=== PATIENT | female | born 1970 | race Caucasian/White ===

== ENCOUNTER 2018-11-15 15:03 | Emergency (ER) | payer OTHER ==
[~2018-11-15] VITALS: Ht 167.6 cm; Wt 108.9 kg
[~2018-11-15 15:03] MED LIST: ALLER-TEC D 5-1 EACH PO; ALYACEN1 EAC1; Bactrim Ds Tab1 EACH PO; Flonase 0.05% N16 GM; GIANVI 3 MG-0.1 EACH PO; Hydralazine HCl10 MG PO; Keflex500 MG PO; NITR100CA PO; OMEP20ER PO; YAZ; Zithromax250 MG PO; [UNRECOGNIZED DRUG - OTHER]
[2018-11-15] MEDS ORDERED: Bactrim Ds Tab1 EACH PO (15:26)
[2018-11-15] MEDS ORDERED: Keflex500 MG PO (15:26)
== END 2018-11-15 15:31 | disposition home or self-care (01) ==
LOC: ER 15:03
DX: L03.114 Cellulitis of left upper limb (principal); Z88.8 Allergy status to other drugs, medicaments and biological substances
CPT/HCPCS: 99283

== ENCOUNTER 2018-12-06 10:25 | Emergency (ER) | payer OTHER ==
[~2018-12-06] VITALS: Ht 157.5 cm; Wt 96.6 kg
[2018-12-06] MEDS ORDERED: Nyamyc15 GM TOP (11:11)
== END 2018-12-06 11:26 | disposition home or self-care (01) ==
LOC: ER 10:25
DX: L30.4 Erythema intertrigo (principal); B37.2 Candidiasis of skin and nail; B37.49 Other urogenital candidiasis; Z88.8 Allergy status to other drugs, medicaments and biological substances; Z91.048 Other nonmedicinal substance allergy status; Z79.899 Other long term (current) drug therapy
CPT/HCPCS: 99282

== ENCOUNTER → 2018-12-17 | Outpatient (CLI) | payer OTHER ==
[~2018-12-17] MED LIST changes: +Nyamyc15 GM TOP
[2018-12-19 15:06] LABS: HPV 16 Negative (Negative); HPV 18 Negative (Negative); HPV OTHER HR TYPES Negative (Negative)
== END | disposition home or self-care (01) ==
LOC: LAB SHORT 17:43 → LAB 17:43
PROVIDERS: Obstetrics & Gynecology Gynecology
DX: Z12.4 Encounter for screening for malignant neoplasm of cervix (principal)
CPT/HCPCS: 87624; G0123

== ENCOUNTER 2020-11-06 10:44 | Emergency (ER) | payer OTHER ==
[~2020-11-06] VITALS: Ht 160 cm; Wt 90.7 kg
[2020-11-06] MEDS ORDERED: NYSTATIN15 GM TOP (11:11)
[2020-11-06] MEDS ORDERED: Diflucan150 MG PO (11:11)
[2020-11-06] MEDS ORDERED: PERISHIELD100 GM TOP (11:11)
== END 2020-11-06 11:35 | disposition home or self-care (01) ==
LOC: ER 10:44
DX: B37.2 Candidiasis of skin and nail (principal); Z88.6 Allergy status to analgesic agent; Z91.048 Other nonmedicinal substance allergy status; Z79.899 Other long term (current) drug therapy
CPT/HCPCS: A9270

== ENCOUNTER 2020-11-10 11:04 | Emergency (ER) | payer OTHER ==
[~2020-11-10] VITALS: Ht 157.5 cm; Wt 96.6 kg
[~2020-11-10 11:04] MED LIST changes: +Diflucan150 MG PO; +NYSTATIN15 GM TOP; +PERISHIELD100 GM TOP
[2020-11-10] MEDS ORDERED: Floxin10 ML BOTHEYES (12:35)
== END 2020-11-10 12:50 | disposition home or self-care (01) ==
LOC: ER 11:04
DX: H10.9 Unspecified conjunctivitis (principal); Z88.6 Allergy status to analgesic agent; Z91.048 Other nonmedicinal substance allergy status; Z79.899 Other long term (current) drug therapy
CPT/HCPCS: 99282

== ENCOUNTER 2020-12-25 20:30 | Emergency (ER) | payer OTHER ==
[~2020-12-25] VITALS: Ht 165.1 cm; Wt 102.1 kg
[~2020-12-25 20:30] MED LIST changes: +Floxin10 ML BOTHEYES
[2020-12-25 21:47] LABS: Source, Urine Clean Catch
[2020-12-25 21:57] LABS: Blood, Urine 2+ (Neg); Glucose Qualitative, Urine Neg (Neg); Ketones, Urine 1+ (Neg); Leukocyte Esterase, Urine 3+ (Neg); Nitrite, Urine Pos (Neg); Protein, Urine 2+ (Neg); Specific Gravity, Urine 1.025 (1.003-1.022); Urobilinogen, Urine NORM (Normal)
[2020-12-25 22:02] LABS: Bilirubin, Urine 1+ (Neg); Color, Urine Yellow (P-Yellow)
[2020-12-25 22:03] LABS: Appearance, Urine Hazy (Clear); Bacteria Many /hpf; Red Blood Cells, Urine Rare /hpf (0-2); Squamous Epithelial Cells Not Seen /hpf (Few)
[2020-12-26 00:30] LABS: Candida species (DNA Probe) Negative (NEGATIVE); G. vaginalis (DNA Probe) Negative (NEGATIVE); T. vaginalis (DNA Probe) Negative (NEGATIVE)
[2020-12-26] MEDS ORDERED: ITRA100 PO (01:04)
[2020-12-26] MEDS ORDERED: CEPH500 PO (01:04)
[2020-12-28 02:10] LABS: CHLAMYDIA TRACHOMATIS, NAA Negative (Negative)
== END 2020-12-26 01:30 | disposition home or self-care (01) ==
LOC: ER 20:30
PROVIDERS: Physician Assistant; Student in an Organized Health Care Education/Training Program
DX: B35.4 Tinea corporis (principal); N61.0 Mastitis without abscess; N89.8 Other specified noninflammatory disorders of vagina; Z88.6 Allergy status to analgesic agent; Z91.048 Other nonmedicinal substance allergy status
CPT/HCPCS: 81001; 87077; 87086; 87186; 87480; 87491; 87510; 87591; 87660; 99283; A9270

== ENCOUNTER 2021-01-14 10:55 | Emergency (ER) | payer OTHER ==
[~2021-01-14] VITALS: Ht 157.5 cm; Wt 81.7 kg
[~2021-01-14 10:55] MED LIST changes: +CEPH500 PO; +ITRA100 PO
[2021-01-14] MEDS ORDERED: ITRA100 PO (13:25)
== END 2021-01-14 13:45 | disposition home or self-care (01) ==
LOC: ER 10:55
DX: B35.4 Tinea corporis (principal); B35.6 Tinea cruris; Z88.6 Allergy status to analgesic agent; Z91.048 Other nonmedicinal substance allergy status; Z79.899 Other long term (current) drug therapy
CPT/HCPCS: 99282; A9270

== ENCOUNTER 2021-04-19 07:20 | Day surgery (SDC) | payer OTHER ==
[~2021-04-19] VITALS: Ht 154.9 cm; Wt 95.3 kg
[~2021-04-19 07:20] MED LIST changes: +ABILIFY MYCITE2 M2 PO; +ALLEGRA ALLERGY60 MG PO; +DULO30 PO; +LORA.5 PO; +NAC600 MG PO; +ONDA4 PO; +PIRMELLA PO
--- NOTE | 2021-04-19 07:51 | NUR ---
PATIENT HERE WITH HER SISTER, DESTIN. PATIENT DOES NOT ANSWER MANY QUESTIONS AND WHEN SHE DOES, ANSWERS SLOWLY. DOES NOT KNOW PERSONAL MEDICAL HISTORY. SISTER, DESTIN, DESCRIBES HERSELF POA AND ANSWERS MEDICAL QUESTIONS FOR PATIENT. PATIENT IS CALM AND QUIET AND DOES NOT APPEAR IN ANY DISTRESS.
[2021-04-19] MEDS ORDERED: ABILIFY MYCITE2 M2 (07:57)
[2021-04-19] MEDS ORDERED: ALLEGRA ALLERG180 MG PO (07:58)
--- NOTE | 2021-04-19 09:51 | NUR ---
04/19/21 0951 Jacey Gold HISTORY,CHART, MEDICATIONS AND ALLERGIES REVIEWED BEFORE START OF PROCEDURE. PATIENT CONFIRMS NPO STATUS AND AGREES WITH SCHEDULED PROCEDURE. 3-LEAD EKG REVIEWED WITH PHYSICIAN PRIOR TO START OF PROCEDURE. MONITOR INTACT WITH CONTINUOUS PULSE OXIMETRY AND INTERMITTENT BP. SUPPLEMENTAL O2 TO BE TITRATED THROUGHOUT PROCEDURE TO MAINTAIN O2 SATURATION ABOVE 90%. PATIENT DETERMINED TO BE ASA APPROPRIATE FOR MODERATE SEDATION PRIOR TO START OF PROCEDURE BY .
--- NOTE | 2021-04-19 10:45 | NUR ---
PT AWAKE, SOMETIMES RESPONDS TO COMMANDS. Ambulatory in Day Surgery TO . Discharge instructions reviewed with patient. Patient'S SISTER DOTTIE (POA) verbalizes understanding. Copy given to patient to take home. Patient States Post-Procedure ride home has been arranged. Discharged via wheelchair to private car for ride home.
== END 2021-04-19 10:45 | disposition home or self-care (01) ==
LOC: ORSCMMR 07:20 → ORD 09:00 → ORSCMMR 09:00
PROVIDERS: Internal Medicine Gastroenterology
PROC: 0DBL8ZX Excision of Transverse Colon, Via Natural or Artificial Opening Endoscopic, Diagnostic (ICD-10-PCS; principal; 2021-04-19 09:00)
PROC: 0DBN8ZX Excision of Sigmoid Colon, Via Natural or Artificial Opening Endoscopic, Diagnostic (ICD-10-PCS; principal; 2021-04-19 09:00)
DX: K59.00 Constipation, unspecified (principal); D12.3 Benign neoplasm of transverse colon; K57.30 Diverticulosis of large intestine without perforation or abscess without bleeding; R10.30 Lower abdominal pain, unspecified; Z79.899 Other long term (current) drug therapy
CPT/HCPCS: 84703; 88305; J2250; J3010; J7120

== ENCOUNTER 2021-04-24 19:33 | Emergency (ER) | payer OTHER ==
[~2021-04-24] VITALS: Ht 162.6 cm; Wt 96.6 kg
[~2021-04-24 19:33] MED LIST changes: +ABILIFY MYCITE2 M2; +ALLEGRA ALLERG180 MG PO
== END 2021-04-24 20:54 | disposition home or self-care (01) ==
LOC: ER 19:33
DX: R09.89 Other specified symptoms and signs involving the circulatory and respiratory systems (principal); R13.10 Dysphagia, unspecified; Z79.899 Other long term (current) drug therapy; Z88.8 Allergy status to other drugs, medicaments and biological substances
CPT/HCPCS: 99283

== ENCOUNTER → 2022-03-10 | Outpatient (CLI) | payer OTHER ==
[~2022-03-10] MED LIST changes: +CEFD300 PO; +ONDA4ODT MM
[2022-03-11 12:57] LABS: Candida species (DNA Probe) Negative (NEGATIVE); G. vaginalis (DNA Probe) Positive (NEGATIVE); T. vaginalis (DNA Probe) Negative (NEGATIVE)
== END | disposition home or self-care (01) ==
LOC: LAB SHORT 15:38
PROVIDERS: Advanced Practice Midwife
DX: N76.0 Acute vaginitis (principal)
CPT/HCPCS: 87480; 87510; 87660

== ENCOUNTER → 2022-10-05 | Outpatient (CLI) | payer OTHER ==
[2022-10-06 10:10] LABS: HBSAG SCREEN Negative (Negative); HEP B CORE AB, IGM Negative (Negative)
[2022-10-08 08:08] LABS: ACTIN (SMOOTH MUSCLE) ANTIBODY 31 Units (0-19); MITOCHONDRIAL (M2) ANTIBODY <20.0 Units (0.0-20.0)
== END | disposition home or self-care (01) ==
LOC: LAB 06:31 → LAB SHORT 06:31
PROVIDERS: Physician Assistant Medical
DX: K74.69 Other cirrhosis of liver (principal)
CPT/HCPCS: 36415; 82105; 82306; 82390; 86015; 86381; 86705; 87340